=== PATIENT | female | born 2000 | race Hispanic/Latino ===

== ENCOUNTER 2020-11-06 01:46 | Inpatient (IN) | payer OTHER ==
[~2020-11-06] VITALS: Ht 165.1 cm; Wt 102.2 kg
[2020-11-06] VITALS (35 sets, daily range): BP systolic 89–213; BP diastolic 51–152
[2020-11-06] MEDS ORDERED: LR 1,000 ML IV SCH (03:07)
[2020-11-06] MEDS ORDERED: LACTATED RINGER'S 1000 ML IV ONE (03:15)
--- NOTE | 2020-11-06 03:39 | HPEPDOC ---
Obstetrical History & Physical General Date of Admission Nov 06, 2020 at 03:05 Primary Care Physician: Danielito East MD History of Present Illness 20 YO AT 39.4 WEEKS ACTIVE LABOR AT TERM NO VAGINAL BLEEDING NO DISCHARGE Chief Complaint: Contractions, term Information Provided By: Patient Age: 20 : 1 Term: 0 Pre-term: 0 Abortions: 0 Livin Care Care: Good Care Number of Visits: 5 Dating Final EDC: Nov 09, 2020 Final EDC for Daily Update: Nov 09, 2020 Final EDC by: LMP LMP: Feb 03, 2020 1st Trimester Date: Jun 03, 2020 Weeks + Days: 17.6 Estimated Date of Confinement: Nov 09, 2020 EGA at Admission: 39.4 Antepartum Course Diagnos(e)s ACTIVE LABOR AT TERM Height (inches): 65 Pre- weight (lbs.): 204 Admission Weight (lbs.): 226 Change in Weight (lbs.): 22 Past Medical History Past Obstetrical History : Past Obstetrical History: [facility] 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 History: Uterine fibroids Past Medical History Medical History NON CONTRIBUTORY Surgical History: Denies/None Family History Family History DIABETES, HYPERTENSION, SEIZURES, BROTHER CEREBRAL PALSY AND DIABETES Social History Social history NON SMOKER NO ETOH NO VAPING TO AD GOOD SUPPORT Marital Status: Family situation: Spouse/partner home Psychosocial History: No pertinent psych hx * Smoker: non-smoker Alcohol: Denies Drugs: denies Abuse Violence Screening Have you been hit/kicked/slapp: No Have you been sexually assault: No Imunizations Tdap status: current Influenza Status: current Allergies Coded Allergies: No Known Allergies (Unverified , 11/06/20) Physical Examination Physical Examination GENERAL: Alert and oriented times three. BREAST: . ABDOMEN: Gravid and non-tender to touch. FETUS: Is vertex (VTX) by sterile vaginal examination (SVE), fetus is vertex (VTX) by [place]. HEART RATE: Regular rate and rhythm. LUNGS: Clear to auscultation (CTA). EXTREMITIES: No edema. No clonus. Deep tendon reflexes (DTRs)NEGATIVE Other physical findings DISTRESSED IN ACTIVE LABOR MODERATE INTENSITY CHEST CLEAR NO DVT PE SF HEIGHT APPROPRIATE BOWEL SOUNDS ACTIVE NO URGE FREQUENCY Vital Signs/I&O Vital Signs Label Value Date Time Patient Temperature 98.3 degrees F 11/06/20213 Temperature Source Temporal 11/06/20213 Pulse 96 11/06/20218 Blood Pressure Assessment 121/61 (81) 11/06/20218 Source Automatic Cuff (NIBP) Laboratory Data 24H LABS Laboratory Tests 2 11/06/20 03:09: Serology Scanned Report Hepatitis B Testing Pertinent Laboratoy Data Blood Type: O+ RBC Antibody Screen: Negative HIV: Negative Hepatitis B: Negative Rapid Plasma Reagin: Nonreactive Rubella: Immune Varicella: Immune Chlamydia/Gonorrhea: Negative Group B Streptococcus: Negative Quad Screen Test: Negative Cystic Fibrosis: Negative Anatomy Ultrasound Placenta Location: Anterior Normal Anatomy: Yes Placenta Previa: No Steroid Therapy Steroid Therapy: No Vaginal Examination Dilation: 5 cm Effacement: 100% Station: -1, 0 Cervical Consistency: Soft Cervical Position: Posterior Presentation: Cephalic presentation Assessment Variability: Moderate Accelerations: Present Decelerations: None Tocometer Contractions: Yes Frequency: regular Duration: greater than 60 seconds Strength: palpated as moderate Multi-drug resistant Organism: No history of MDRO Assessment/Plan Assessment 20-year-old (G)1 para (P)0 at 39.4 weeks by 17.6 week ultrasound. Presents to Labor and Delivery (L&D) ACTIVE LABOR AT TERM Plan Admit and orient. 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 Diet:CLEAR Group B Streptococcus (GBS) [negative]. Labs and intravenous (IV) per unit protocol. Counseled on Pitocin and induction of labor (IOL). Lactated Ringers (LR): Bolus 1000 mL,PRE EPIDURAL then at 125 mL/hr. Anticipate [normal spontaneous delivery ()]. C-S as appropriate. Labor and Delivery Counseling REVIEWED VAGINAL DELIVERY INCLUDE LACERATIONS EPISIOTOMY REPAIR TO BOWEL BLADDER URETHRA CERVIX, REVIEWED USE OF PITOCIN RE TACHYSYSTOLE INCREASE RISK C/S USE OF FORCEPS VACUUM INCREASE RISK CEPHALOHEMATOMA, SUBDURAL HEMATOMA SCALP LACERATION ADMISSION TO NICU RISK TO MOTHER HEMORRHAGE INFECTION PERFORATION REMOTE BLOOD TRANSFUSION, REMOTE HYSTERECTOMY EXPRESSED UNDERSTANDING CATEGORY 1 STRIP SAFE TO PROCEED Danielito East MD Nov 06, 2020 03:34
[2020-11-06 04:06] LABS: HEMATOCRIT 37.1 % (36.0-47.0); HEMOGLOBIN 12.3 g/dl (12.0-15.5); MEAN CORPUSCULAR HEMOGLOBIN 28.5 pg (27.0-33.0); MEAN CORPUSCULAR HGB CONC 33.2 g/dl (32.0-36.5); MEAN CORPUSCULAR VOLUME 85.9 fl (80.0-96.0); PLATELET COUNT, AUTOMATED 254 10^3/uL (150-450); RED BLOOD COUNT 4.32 10^6/uL (4.00-5.40); WHITE BLOOD COUNT 16.3 10^3/uL (4.0-10.0)
[2020-11-06] MEDS ORDERED: FENTANYL 2MCG/ML ROPIVACAINE 0.2% IN 0.9% NACL 100ML IVBAG As Ordered ONE ×2 (04:41→11:57)
[2020-11-06] MEDS ORDERED: ePHEDrine SULFATE 25 MG/5 ML(5MG/ML) SYRINGE As Ordered ONE (06:17)
--- NOTE | 2020-11-06 06:23 | IPNPDOC ---
Text Note Date of Service The patient was seen on 11/06/20. NOTE SROM CLEAR 5 CM ANTERIOR EPIDURAL IN PLACE CONTRACTIONS SPACED WILL START P ITOCIN CATEGORY 1 STRIP SAFE TO PROCEED VS,Yaakovbone, I+O VS, Fishbone, I+O Laboratory Tests 11/06/20 04:00 Vital Signs Date Time Temp Pulse Resp B/P (MAP) Pulse Ox O2 Delivery O2 Flow Rate FiO2 11/06/20 02:19 96 121/61 (81) 11/06/20 02:14 98.3 Danielito East MD Nov 06, 2020 06:23
[2020-11-06] MEDS ORDERED: REFRIGERATOR IV KEYS XX PRN (06:30)
[2020-11-06] MEDS ORDERED: OXYTOCIN DRIP 30 UNITS in IV 1 EA IV SCH ×3 (06:30→14:15)
[2020-11-06] MEDS ORDERED: ePHEDrine SULFATE 25 MG/5 ML(5MG/ML) SYRINGE IV PRN (06:30)
[2020-11-06] MEDS ORDERED: EPIDURAL/PCA KEYS XX PRN (06:30)
[2020-11-06] MEDS ORDERED: NALOXONE INJ 0.4MG/1ML VIAL (J2310 PER 1MG) IV PRN (06:30)
[2020-11-06] MEDS ORDERED: EPIDURAL COMMENT XX SCH (06:30)
[2020-11-06] MEDS ORDERED: LACTATED RINGER'S 1000 ML IV PRN (06:30)
[2020-11-06] MEDS ORDERED: diphenhydrAMINE 50MG/ML VIAL (J1200) IV PRN (06:30)
[2020-11-06] MEDS ORDERED: ONDANSETRON 4MG/2ML VIAL IV PRN (06:30)
--- NOTE | 2020-11-06 08:25 | IPNPDOC ---
Obstetrical Progress Note Date of Service Nov 06, 2020 Subjective To room for acceptance of care. Patient reports increased pressure but has no other complaints. She denied n/v/d, cp, sob, luna, visual changes, f/c. Objective Vital Signs Date Time Temp Pulse Resp B/P (MAP) Pulse Ox O2 Delivery O2 Flow Rate FiO2 11/06/20 07:42 98.4 90 18 Room Air 11/06/20 02:19 121/61 (81) Assessment Heart Rate (FHR): 145 Variability: Moderate Accelerations: Positive Decelerations: None Heart Rate Tracing: Category I Tocometer Contractions: Yes Frequency: regular Sterile Vaginal Examination Dilation: 5 cm Effacement (%): 100% Station: 0 Cervical Consistency: Soft Cervical Position: Anterior Postion/Presentation: Cephalic presentation (by exam) Assessment and Plan Status: Reassuring Anticipate: Vaginal Delivery Additional Comments 20yo at 39+4 who initially presented in early labor but has not made cervical change. is c/b uterine fibroids. She is Rh pos, GBS neg, cephalic by exam, placenta anterior. After her epidural she had an episode of hypotension resulting in a CAT II tracing, all which resolved after ephedrine administration. She SROMed shortly after her epidural reported around 0400. She recently had a mild range BP but her epidural was not as effective and she was elizabeth. She denied si/sx of pre-eclampsia. There was difficulty tracing her contractions so an IUPC was placed. - starting pitocin for stalled progress - will titrate to proper MVU - will reassess in 4-6h or sooner if clinically indicated ROHINI GUIDRY DO Nov 06, 2020 08:24
[2020-11-06] MEDS: FENTANYL/ROPIVACAINE/NACL BAG 100 ML EPIDURAL SCH ×2 (08:47→12:03)
[2020-11-06 14:07] LABS: CORD GAS ABE V -1.3; CORD GAS HCO3 V 25.3 MEQ/L; CORD GAS O2 SAT V 61.1 %; CORD GAS PCO2 V 49.3 mmHg; CORD GAS PH V 7.328 UNITS; CORD GAS PO2 V 25.9 mmHg; CORD GAS SBC V 22.4 MEQ/L; CORD GAS TCO2 V 26.8 MEQ/L
[2020-11-06 14:08] LABS: CORD GAS ABE A -6.2; CORD GAS HCO3 A 21.2 MEQ/L; CORD GAS O2 SAT A 43.5 %; CORD GAS PCO2 A 49.1 mmHg; CORD GAS PH A 7.254 UNITS; CORD GAS PO2 A 22.3 mmHg; CORD GAS SBC A 18.2 MEQ/L; CORD GAS TCO2 A 22.8 MEQ/L
[2020-11-06] MEDS ORDERED: IBUPROFEN 600MG TAB PO PRN (14:15)
[2020-11-06] MEDS ORDERED: ACETAMINOPHEN TAB 650MG DOSE (2X325MG) PO PRN (14:15)
[2020-11-06] MEDS ORDERED: BENZOCAINE 20% HEMORRHOIDAL OINTMENT 28GM TUBE TOP PRN (14:15)
--- NOTE | 2020-11-06 14:23 | DNPDOC ---
[facility] Delivery Note Delivery Note DATE OF DELIVERY: PREDELIVERY DIAGNOSIS: 39+4/7 weeks' gestation and labor. POST DELIVERY DIAGNOSIS: Delivered. PROCEDURE: Spontaneous vaginal delivery, repair of second degree perineal laceration GROUNDS CARETAKER: Dr. Lawson Guidry DO ANESTHESIA: epidural ESTIMATED BLOOD LOSS: 100 mL. FINDINGS: 3440g , Score 8/9, nuchal cord times 0. DELIVERY SUMMARY: 20 YO AT 39.4 wk presented in labor at term, she required augmentation with pitocin. She progressed to C/C/+3 and with spontaneous maternal effort delivered the head in the JULIAN position. A compound right arm was noted and was swept and delivered followed by the corpus without difficult. The baby had spontaneous movement and cry. Cord clamping was delayed 60s and then it was cut by the FOB. Cord blood gasses were obtained. The placenta was delivered with anna downward traction and had a 3 vessel cord and was in-tact. The lower uterine segment was cleared of clots and the uterus was firm with massage and pitocin. A second degree laceration was repaired with 2-0 vicryl in the usual fashion. The surgical site remained hemostatic. The sponge, lap and needle counts were correct. There were no complications. LAWSON GUIDRY DO Nov 06, 2020 14:23
[2020-11-06] MEDS: IBUPROFEN 800 MG TAB PO PRN (17:07)
[2020-11-06] MEDS: DOCUSATE SODIUM 100MG CAPSULE PO PRN (20:13)
[2020-11-06] MEDS: ACETAMINOPHEN 500 MG TAB PO PRN (20:13)
[2020-11-07] MEDS: IBUPROFEN 800 MG TAB PO PRN ×2 (01:53→16:42)
[2020-11-07 06:14] VITALS: BP 109/60
--- NOTE | 2020-11-07 06:55 | IPNPDOC ---
Progress Note Date of Service: Nov 07, 2020 Day#: 1 Progress Note SUBJECT: 20 YO PPD1 s/p AT 39.4 wk presented in labor at term, deliv daniel c/b 2MLL. She has been ambulating, voiding spontaneously without issue and tolerating regular diet. Breast feeding without issue. Reports lochia is less than a normal period]. Patient is ambulating well. [Reports some cramping with . Denies any pain. Voiding and passing flatus without difficulty]. OBJECTIVE: VITAL SIGNS: Within normal limits, afebrile. Alert and oriented times three. Breath no increased wob Heart rate: non-tachy Abdomen: Fundus firm at U-2. Soft, NTTP. [Minimal] lochia per pt ASSESSMENT: 20 YO PPD1 s/p AT 39.4 wk presented in labor at term, delivery c/b 2MLL. Vitals within normal limits, afebrile, hemodynamically stable with no evidence of infection. PLAN: 1. Discharge to home tomorrow 2. Tylenol and Motrin for pain. 3. Encourage breast feeding and ambulation. 4. desires mirena in 6wk for contraception 5. Routine PP visit in 6 weeks in clinic. 6. Discussed return precautions at length. VS, I&O, 24H, Fishbone Vital Signs/I&O Vital Signs Date Time Temp Pulse Resp B/P (MAP) Pulse Ox O2 Delivery O2 Flow Rate FiO2 11/07/20 06:14 96.6 78 18 109/60 (76) 11/06/20 07:42 Room Air I&O- Last 24 Hours up to 6 AM 11/07/20 06:00 Intake Total 1337.6 ml Output Total 2820 ml Balance -1482.4 ml Laboratory Data 24H LABS Laboratory Tests 2 11/06/20 13:57: Cord Arterial Blood pH 7.254, Cord Arterial Blood PCO2 49.1, Cord Arterial Blood PO2 22.3, Cord Arterial Blood HCO3 21.2, Cord Arterial Blood Total CO2 22.8, Cord Arterial Blood Base Excess -6.2, Cord Arterial Base Excess (Standard 18.2, Cord Arterial Bld Oxygen Saturation 43.5, Cord Venous Blood pH 7.328, Cord Venous Blood PCO2 49.3, Cord Venous Blood PO2 25.9, Cord Venous Blood HCO3 25.3, Cord Venous Blood Total CO2 26.8, Cord Venous Base Excess (Actual) -1.3, Cord Venous Base Excess (Standard) 22.4, Cord Venous Blood Oxygen Saturation 61.1 11/06/20 14:44: Syphilis Serology NONREACTIVE ROHINI GUIDRY DO Nov 07, 2020 06:55
[2020-11-07] MEDS: ACETAMINOPHEN 500 MG TAB PO PRN (07:43)
[2020-11-07] MEDS: PRENATAL VITAMINS CHEWABLE TABLET PO SCH (07:43)
[2020-11-07 18:00] VITALS: BP 129/73
[2020-11-07] MEDS: DOCUSATE SODIUM 100MG CAPSULE PO PRN (20:30)
[2020-11-08 06:00] VITALS: BP 131/59
[2020-11-08] MEDS ORDERED: DOK1CAP7 PO (07:24)
[2020-11-08] MEDS ORDERED: IBUP-1022 PO (07:24)
[2020-11-08] MEDS: PRENATAL VITAMINS CHEWABLE TABLET PO SCH (07:46)
[2020-11-08] MEDS: IBUPROFEN 800 MG TAB PO PRN (07:47)
--- NOTE | 2020-11-08 08:26 | DSES ---
DISCHARGE SUMMARY DATE OF ADMISSION: 11/06/2020 DATE OF DISCHARGE: 11/08/2020 A 20-year-old 1, now para 1, admitted at 39/4 weeks gestation in active labor, had a spontaneous vaginal delivery of a live male weighing 3440 grams, scores of 8 and 9 and one and five minutes respectively. Arterial pH 7.25, base excess -6.2, venous pH 7.32, base excess -1.3. She had a second degree tear which was oversewn in the usual fashion. On her second day, we discussed phlebitis, cystitis, mastitis, endometritis, cellulitis, diet, exercise, pain management, perineal and breast care. Admitting hemoglobin was 12.3, hematocrit 37.1 and platelets 254. DISCHARGE VITAL SIGNS: Blood pressure 129/73, respirations 16, pulse 80, temperature 97.3 The rest of the examination is unremarkable. Normocephalic, atraumatic. Neck: Full range of motion. Pupils are equal and reactive to light. Distal pulses are symmetric. No evidence of deep venous thrombosis (DVT), pulmonary embolism (PE) or superficial phlebitis. Chest is clear bilateral bases. No wheezes or rhonchi. No costovertebral angle (CVA) tenderness. Abdomen soft. Uterus 2 below. Lochia is moderate. Four quadrant bowel sounds are noted. Perineum is healing. No rashes, lesions, pruritus. No arthralgias, myalgias. No complaint of joint pain. No complaint of cough, wheeze, shortness of breath or dyspnea on exertion. No nauseousness, vomiting, diarrhea or constipation. No urgency or frequency. In summary, we have a term gestation, delivered a live male . Plan is to chicken picker her medications at [facility]. Six week checkup with Hiram Gutierrez OB. All questions were answered, 20 minute discussion. Patient was discharged improved.
== END 2020-11-08 11:55 | disposition home or self-care (01) | DRG 807 ==
LOC: M LDO 01:46 → M LDI 03:05 → M OBS 16:35
PROVIDERS: ADMIT Obstetrics & Gynecology; ATTEND Obstetrics & Gynecology
PROC: 10E0XZZ Delivery of Products of Conception, External Approach (ICD-10-PCS; principal; 2020-11-06)
PROC: 0KQM0ZZ Repair Perineum Muscle, Open Approach (ICD-10-PCS; 2020-11-06)
DX: O64.5XX0 Obstructed labor due to compound presentation, not applicable or unspecified (principal); Z37.0 Single live birth; Z3A.39 39 weeks gestation of pregnancy; O70.1 Second degree perineal laceration during delivery

== ENCOUNTER 2023-12-12 19:59 | Inpatient (IN) | payer OTHER ==
[2023-12-12] VITALS (7 sets, daily range): BP systolic 102–135; BP diastolic 64–100
[~2023-12-12] VITALS: Ht 165.1 cm; Wt 120.2 kg
[~2023-12-12 19:59] MED LIST: DOK1CAP4 PO; IBUP-1022 PO
[2023-12-12] MEDS ORDERED: METHYLERGONOVINE MALEATE 0.2MG/ML 1ML VIAL IM PRN (20:40)
[2023-12-12] MEDS ORDERED: TRANEXAMIC ACID INJection 1,000 MG in NS 100 ML IV PRN (20:40)
[2023-12-12] MEDS ORDERED: OXYTOCIN DRIP 30 UNITS in IV 1 EA IV PRN (20:40)
[2023-12-12] MEDS ORDERED: LIDOCAINE 1% MDV 20ML VIAL INFIL PRN (20:40)
[2023-12-12] MEDS ORDERED: VITAD400CA FT (20:41)
[2023-12-12] MEDS ORDERED: UNIS25TA3 PO (20:41)
[2023-12-12] MEDS ORDERED: PRENTAB9 PO (20:41)
[2023-12-12] MEDS ORDERED: LEXA1TAB PO (20:41)
[2023-12-12] MEDS ORDERED: ACET-907 PO (20:41)
[2023-12-12] MEDS ORDERED: HOME MED LIST COMPLETE! XX SCH (20:45)
[2023-12-12] MEDS: LR 1,000 ML IV SCH (21:20)
[2023-12-12 21:37] LABS: HEMATOCRIT 38.3 % (36.0-47.0); HEMOGLOBIN 12.9 g/dl (12.0-15.5); MEAN CORPUSCULAR HEMOGLOBIN 28.4 pg (27.0-33.0); MEAN CORPUSCULAR HGB CONC 33.7 g/dl (32.0-36.5); MEAN CORPUSCULAR VOLUME 84.4 fl (80.0-96.0); PLATELET COUNT, AUTOMATED 236 10^3/uL (150-450); RED BLOOD COUNT 4.54 10^6/uL (4.00-5.40); WHITE BLOOD COUNT 12.5 10^3/uL (4.0-10.0)
[2023-12-12] MEDS ORDERED: LR 500 ML IV PRN (21:55)
[2023-12-12] MEDS ORDERED: diphenhydrAMINE 50MG/ML VIAL IV PRN (21:55)
[2023-12-12] MEDS ORDERED: ePHEDrine SULFATE 25 MG/5 ML(5MG/ML) SYRINGE IVP PRN (21:55)
[2023-12-12] MEDS ORDERED: EPIDURAL/PCA KEYS XX PRN (21:55)
[2023-12-12] MEDS ORDERED: NALOXONE INJ 0.4MG/1ML VIAL IV PRN (21:55)
[2023-12-12] MEDS: FENTANYL/ROPIVACAINE/NACL BAG 100 ML EPIDURAL SCH (22:01)
[2023-12-12] MEDS: ONDANSETRON 4MG 2ML VIAL IV PRN (23:02)
[2023-12-13] VITALS (9 sets, daily range): BP systolic 98–169; BP diastolic 54–67; O2SAT 98
[2023-12-13] MEDS: OXYTOCIN DRIP 30 UNITS in IV 1 EA IV PRN (00:06)
[2023-12-13] MEDS ORDERED: RHOGAM 300MCG (1500IU) INJ IM SCH (00:25)
[2023-12-13] MEDS ORDERED: METHYLERGONOVINE MALEATE 0.2MG/ML 1ML VIAL IM PRN (00:25)
[2023-12-13] MEDS: LR 1,000 ML IV SCH (00:25)
[2023-12-13] MEDS ORDERED: METOCLOPRAMIDE INJ 10MG/2ML VIAL IV PRN (00:25)
[2023-12-13] MEDS ORDERED: ONDANSETRON 4MG 2ML VIAL IV PRN (00:25)
[2023-12-13] MEDS ORDERED: IBUPROFEN 600MG TAB PO PRN (00:25)
[2023-12-13] MEDS: OXYTOCIN DRIP 30 UNITS in IV 1 EA IV SCH (00:40)
[2023-12-13] MEDS: CALCIUM CARBONATE 500 MG CHEW U/D PO ONE (01:07)
[2023-12-13] MEDS: ACETAMINOPHEN TAB 650MG DOSE (2X325MG) PO PRN (03:04)
[2023-12-13] MEDS: DIBUCAINE 1% OINTMENT 30GM TOP PRN (03:05)
[2023-12-13] MEDS: IBUPROFEN 800 MG TAB PO PRN (04:59)
[2023-12-13] MEDS ORDERED: PRENATAL VITAMINS CHEWABLE TABLET PO SCH (09:00)
[2023-12-13] MEDS: DOCUSATE SODIUM 100MG CAPSULE PO PRN (10:06)
[2023-12-13] MEDS ORDERED: INFLUENZA QUADRIVALENT PF VACCINE 0.5ML SYRINGE IM.IMMUN ONE (12:00)
[2023-12-13] MEDS: ACETAMINOPHEN 500 MG TAB PO PRN (13:44)
[2023-12-13] MEDS: PRENATAL VITAMINS CHEWABLE TABLET PO SCH (20:30)
[2023-12-13] MEDS: ESCITALOPRAM OXALATE 10 MG TAB (LEXAPRO) PO SCH (20:30)
[2023-12-14 05:39] VITALS: BP 118/55; O2SAT 98
[2023-12-14] MEDS: INFLUENZA QUADRIVALENT PF VACCINE 0.5ML SYRINGE IM.IMMUN ONE (10:56)
[2023-12-14] MEDS: MEASLES,MUMPS,RUBELLA VACCINE INJ (MMR-II) SC.IMMUN ONE (10:58)
== END 2023-12-14 12:07 | disposition home or self-care (01) | DRG 807 ==
LOC: M LDO 19:59 → M LDI 20:40 → M OBS 12-13 02:02
PROVIDERS: ADMIT Obstetrics & Gynecology; ATTEND Obstetrics & Gynecology
PROC: 10E0XZZ Delivery of Products of Conception, External Approach (ICD-10-PCS; principal; 2023-12-12)
PROC: 0KQM0ZZ Repair Perineum Muscle, Open Approach (ICD-10-PCS; 2023-12-12)
DX: O70.1 Second degree perineal laceration during delivery (principal); Z37.0 Single live birth; Z3A.38 38 weeks gestation of pregnancy